=== PATIENT | male | born 1950 | race Caucasian/White ===

== ENCOUNTER 2020-04-23 06:03 | Inpatient (IN) ==
[2020-04-16 13:36] LABS: Basophils # (Auto) 0.03 K/mcL (0.00-0.30); Basophils % (Auto) 0.6 % (0.0-2.0); Eosinophils # (Auto) 0.14 K/mcL (0.00-0.70); Granulocytes % (Auto) 60.4 % (38.0-78.0); Hematocrit 38.8 % (40.1-51.0); Hemoglobin 12.9 g/dL (13.7-17.5); Lymphocytes # (Auto) 1.21 K/mcL (1.50-4.80); Lymphocytes % (Auto) 26.1 % (15.5-49.0); Mean Cell Volume 92.4 fL (80.0-100.0); Mean Corpuscular HGB Conc 33.2 g/dL (31.0-36.0); Mean Platelet Volume 9.7 fL (7.4-10.4); Monocytes # (Auto) 0.46 K/mcL (0.10-0.90); Monocytes % (Auto) 9.9 % (1.0-12.0); Platelet Count 211 K/mcL (140-440); Red Cell Distribution Width 12.1 % (11.5-14.5); WBC 4.6 K/mcL (4.50-11.00)
[2020-04-16 13:40] LABS: Appearance,Urine CLEAR; Bilirubin,Urine NEG (NEG); Color,Urine YELLOW; Culture Indicated,Urine NO; Glucose,Urine (UA) 150 mg/dL (NEG); Ketones,Urine NEG (NEG); Leukocyte Esterase,Urine NEG /uL (NEG); Nitrate,Urine NEG (NEG); Protein,Urine NEG (NEG); Specific Gravity,Urine 1.016 (1.000-1.035); Urine Blood NEG mg/dL (<0.03)
[2020-04-16 13:54] LABS: INR 0.9 (0.9-1.1); Prothrombin Time 12.5 sec (11.9-14.5)
[2020-04-16 13:59] LABS: Blood Urea Nitrogen 12 mg/dl (8-23); Calcium 8.8 mg/dl (8.6-10.4); Carbon Dioxide 25 mmol/L (22-30); Chloride 104 mmol/L (96-108); Glomerular Filtration Rate 86; Glucose 102 mg/dL (70-105)
[2020-04-16 14:04] LABS: Estimated Average Glucose(eAG) 137 mg/dL; Hemoglobin A1C 6.4 % HGB (4.0-6.0)
[~2020-04-23 06:03] MED LIST: 0.9 % SODIUM CHLORIDE 9 ML, KETOROLAC 30 MG, ROPIVACAINE HCL/PF 49.5 ML, EPINEPHrine 0.... IJ SCH; ACETAMINOPHEN 500 MG TABLET PO SCH; CELECOXIB 200 MG CAPSULE PO SCH; IPRATROPIUM/ALBUTEROL 3 ML AMPUL.NEB NEB PRN; PREGABALIN 75 MG CAPSULE PO SCH; SCOPOLAMINE 1 PATCH PATCH TOPICAL PRN; ceFAZolin 2 GM in DEXTROSE 5% IN WATER 50 ML IV SCH; oxyCODONE 10 MG TAB.ER.12H PO SCH
[2020-04-23] MEDS ORDERED: MIDAZOLAM 2 MG/2 ML VIAL IV ONE (08:58)
[2020-04-23] MEDS ORDERED: LIDOCAINE HCL/PF 100 MG/5 ML SYRINGE IV ONE (08:58)
[2020-04-23] MEDS ORDERED: DEXAMETHASONE 10 MG/ML VIAL IV ONE (08:58)
[2020-04-23] MEDS ORDERED: SUGAMMADEX SODIUM 200 MG/2 ML VIAL IV ONE (08:58)
[2020-04-23] MEDS ORDERED: KETAMINE 100 MG/ML ML IV ONE (08:58)
[2020-04-23] MEDS ORDERED: PROPOFOL 200 MG/20 ML VIAL IV ONE (08:58)
[2020-04-23] MEDS ORDERED: HYDROmorphone 1 MG/ML SYRINGE IV ONE (08:58)
[2020-04-23] MEDS ORDERED: ONDANSETRON 4 MG/2 ML VIAL IV ONE (08:58)
[2020-04-23] MEDS ORDERED: GLYCOPYRROLATE 0.2 MG/ML VIAL IV ONE (08:58)
[2020-04-23] MEDS ORDERED: ROPIVACAINE HCL/PF 30 ML VIAL IJ ONE (08:58)
[2020-04-23] MEDS ORDERED: ROCURONIUM 10 MG/ML ML IV ONE (08:58)
[2020-04-23] MEDS ORDERED: GENTAMICIN SULFATE 800 MG/20 ML VIAL IR ONE (09:32)
[2020-04-23] MEDS ORDERED: ONDANSETRON 4 MG/2 ML VIAL IV PRN ×2 (10:04→10:12)
[2020-04-23] MEDS ORDERED: fentaNYL 100 MCG/2 ML VIAL IV PRN (10:04)
[2020-04-23] MEDS ORDERED: HYDROmorphone 0.5 MG/0.5 ML SYRINGE IV PRN (10:04)
[2020-04-23] MEDS ORDERED: hydrALAZINE 20 MG/ML VIAL IV PRN (10:04)
[2020-04-23] MEDS ORDERED: IPRATROPIUM/ALBUTEROL 3 ML AMPUL.NEB NEB PRN (10:04)
[2020-04-23] MEDS ORDERED: BENZOCAINE/MENTHOL 1 LOZENGE PO PRN ×2 (10:04→10:12)
[2020-04-23] MEDS ORDERED: MEPERIDINE 25 MG/ML SYRINGE IV PRN (10:04)
[2020-04-23] MEDS ORDERED: KETOROLAC 15 MG/ML VIAL IV PRN (10:12)
[2020-04-23] MEDS ORDERED: TRANEXAMIC ACID 1,000 MG/10 ML VIAL IV SCH (10:12)
[2020-04-23] MEDS ORDERED: FLEETS ADULT ENEMA PR PRN (10:12)
[2020-04-23] MEDS ORDERED: HYDROcodone/APAP 10/325MG TABLET PO PRN (10:12)
[2020-04-23] MEDS ORDERED: MAGNESIUM HYDROXIDE 30 ML ORAL.SUSP PO PRN (10:12)
[2020-04-23] MEDS ORDERED: BISACODYL 10 MG SUPP.RECT PR PRN (10:12)
[2020-04-23] MEDS ORDERED: HYDROmorphone 1 MG/ML SYRINGE IV PRN (10:12)
[2020-04-23] MEDS ORDERED: POLYETHYLENE GLYCOL 3350 17 GM PACKET PO PRN (10:12)
[2020-04-23] MEDS ORDERED: ACETAMINOPHEN 325 MG TABLET PO PRN (10:12)
--- NOTE | 2020-04-23 10:12 | Brief Operative Note ---
Brief Operative Note Date of procedure: 04/23/20 Pre-op diagnosis: Right shoulder djd Post-op diagnosis: same Procedure: Right shoulder reverse tsa and bicep tenodesis Grafts/Implants: Yes Anesthesia: GETA Complications: none Surgeon: Apolinar Reyes Client Consultant: Garrett Reed Estimated blood loss (cc): 100 Tourniquet Time (Minutes): 0 Specimens Removed/Pathology: none sent Condition: stable Disposition: PACU
[2020-04-23] MEDS ORDERED: LACTATED RINGERS 1,000 ML IV SCH (10:15)
--- NOTE | 2020-04-23 10:27 | Discharge Plan ---
Discharge Instructions - TSA Patient Instructions Total Shoulder Protocol: Leave immobilizer in place except for bathing and ROM. Abduction pillow. Continue to wear sling until seen by physician. [place] Pendulum : These exercises use momentum produced by your body to move your shoulder joint. Bend your knees and shift your weight to your front leg, then back, allowing your arm to swing in the same directions. Using the same technique, alternately shift your weight between your right and left legs, allowing your arm to swing from side to side. These exercises are also performed in counterclockwise and clockwise circular motions. Typically these exercises are performed several times per day, for a set number repetitions or minutes, such as 20 times in a row or 5 minutes at a time. Discharge Plan Patient/Caregiver Discharge Instructions Activity: as per physical therapy Diet: Regular Diet Prescriptions: New hydrocodone-acetaminophen 10-325 mg Tablet 1 - 2 tab PO Q4HP PRN (Reason: Pain Level 3-6) Qty: 75 RF: 0 docusate sodium 100 mg Capsule 100 mg PO BID Qty: 60 RF: 0 Continued verapamil 120 mg Tablet Extended Release 120 mg PO QDAY RF: 0 multivitamin Tablet 1 tab PO Q2D RF: 0 metformin 850 mg Tablet 850 mg PO BIDCC RF: 0 clopidogrel [Plavix] 75 mg Tablet 75 mg PO QDAY RF: 0 vitamin B complex Tablet 1 tab PO Q2D RF: 0 lisinopril 5 mg Tablet 5 mg PO QHS RF: 0 rosuvastatin [Crestor] 20 mg Tablet 20 mg PO HS RF: 0 Other Ambulatory Orders: Brace/Splint (ONCE) Location: None Selected Ordered By: Garrett Reed Physical Therapy [place] - [facility] (Routine) Location: None Selected Ordered By: Garrett Reed Follow Up Plan Follow up with: Garrett Reed PA-C [Physician Configuration Release Manager] - Patient Disposition: Home, Self-Care Prognosis: Good Rehab Potential: Good I certify that the patient requires SNF services: No Overall status at discharge: patient is progressing back to baseline Discharge Orders: Discharge Order (Routine); Ordered 04/24/20 Ordered By: Garrett Reed
--- NOTE | 2020-04-23 11:30 | XRay Report ---
INDICATION: Post-OP Total Shoulder TECHNIQUE: AP and Y views of the right shoulder COMPARISON: None. FINDINGS: Status post right reverse shoulder arthroplasty. Alignment is anatomic. Previous resection of the distal right clavicle consistent with Dg procedure IMPRESSION: Reverse shoulder arthroplasty Interpreted and Authenticated by: Ozzy Olivares 04/23/20
[2020-04-23] MEDS: LACTATED RINGERS 1,000 ML IV SCH ×3 (11:33→20:18)
[2020-04-23] MEDS: 0.9 % SODIUM CHLORIDE 10 ML SYRINGE IV SCH ×2 (14:59→20:58)
--- NOTE | 2020-04-23 15:07 | Operative Note ---
DATE OF OPERATION: 04/23/2020 PREOPERATIVE DIAGNOSES: Right shoulder with rotator cuff arthropathy and biceps tendinopathy. 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 PROCEDURE: Right reverse total shoulder with [place] components with a biceps tenodesis. SURGEON: Apolinar Reyes M.D. CHIEF METER READER: Garrett Reed PA-C. The PA's assistance was required for the safe and efficient completion of the entire case. This provider's expertise and technical skill were required throughout the case. The PA assisted with preoperative coordination, intraoperative retraction, wound closure, dressing and splint application, as well as postoperative documentation and care coordination. ANESTHESIA: General LMA anesthesia. COMPLICATIONS: None. DESCRIPTION OF PROCEDURE: The patient was brought to the operating room and put to sleep with general LMA anesthesia. Once asleep, the patient had the right shoulder sterilely prepped and draped in the usual sterile fashion. A timeout was performed confirming this as the operative site by initials, consent form, and x-rays. We then made a deltopectoral approach after Ioban had been placed over the skin, retracting the deltoid laterally and identifying the subscap anteriorly which was released. The conjoined tendon retracted medially. We made our humeral neck cut at 135 degrees of inclination with 20 degrees of retroversion. We irrigated thoroughly and after the bony fragment been removed, we placed a protective plate on the humerus. This was subluxed posteriorly and inferiorly. I released the capsule 360 degrees around the glenoid. We removed the remnants of the labrum and biceps tendon. We placed a guide pin centrally and slightly posterior inferiorly. This was reamed up to a size 40 reamer. I then removed any osteophytes inferiorly. The metaglene was placed with a central screw measuring 44 mm. The peripheral screws were measured at 32, 36 and 32. We placed a 40 mm glenosphere with 2 mm of offset, 2 mm of eccentricity. Once this was tapped into place and locked, we irrigated thoroughly and prepared the humerus. This was broached up to a size 14. A 14 stem was used with a small amount of cement distally with a 6 mm poly liner. This gave perfect stability with tension with 2 mm of play when a shuck test was performed. We irrigated thoroughly. We then repaired the tissue and the capsule with #1 Ethibond. We repaired the biceps tendon to the pectoralis major and subpectoralis repair. This was repaired with two [id number] stitches. We irrigated thoroughly and then repaired the interval with 2-0 Vicryl and 3-0 Monocryl. Sterile bandage applied. A DonJoy sling was fitted and given to the patient. RBH:ana Job ID: [id number] Doc ID: [id number] Apolinar Reyes MD
[2020-04-23] MEDS: ceFAZolin 1 GM VIAL IV SCH (16:20)
[2020-04-23] MEDS: metFORMIN 850 MG TABLET PO SCH (20:17)
[2020-04-23] MEDS: DOCUSATE SODIUM 100 MG CAPSULE PO SCH (20:18)
[2020-04-23] MEDS ORDERED: TEMAZEPAM 15 MG CAPSULE PO PRN (21:00)
[2020-04-23] MEDS ORDERED: SENNOSIDES 1 TABLET PO SCH (21:00)
[2020-04-24] MEDS ORDERED: ceFAZolin 1 GM VIAL ONE (00:18)
[2020-04-24] MEDS: ceFAZolin 1 GM VIAL IV SCH (00:25)
[2020-04-24] MEDS: 0.9 % SODIUM CHLORIDE 10 ML SYRINGE IV SCH ×2 (03:40→04:08)
[2020-04-24] MEDS: LACTATED RINGERS 1,000 ML IV SCH (04:24)
--- NOTE | 2020-04-24 07:40 | Orthopedic Progress Note ---
SUBJECTIVE Subjective Patient information: Note initiated : 04/24/20 at 7:39 am Service Date, if different from initiated Date: [] Patient: Lidia Covington 70 y/o M admitted on 04/23/20 for Right Reverse Total Shoulder Arthroplasty with . Chief Complaint: [Pt is stable this morning on post operative day 1 without any significant concerns or complaints. Patients vital signs have remained stable. Patients dressing is dry and is grossly intact from a neurovascular and motor standpoint. Patients 10 point ROS is otherwise negative. ] Constitutional Vitals: Vital Signs Temp Pulse Resp BP Pulse Ox 98.0 F 68 16 105/67 92 04/24/20 03:37 04/24/20 03:37 04/24/20 03:37 04/24/20 03:37 04/24/20 03:37 Period Temp Pulse Resp BP Sys/Stauffer Pulse Ox Last 24 Hr 96.5 F-98.9 F 49-98 13-18 96-128/52-78 2-100 Intake and Output 04/23/20 04/24/20 04/24/20 21:59 05:59 13:59 Intake Total 540 150 Output Total 150 Balance 390 150 Weight 218 lb 3 oz Intake & Output: Intake & Output 04/23/20 04/24/20 04/24/20 21:59 05:59 13:59 Intake Total 540 150 Output Total 150 Balance 390 150 Weight 218 lb 3 oz Intake: Oral 540 150 Output: Void Amount 150 Other: Meal Dinner Percent of Meal Consumed 100% Urine Appearance Clear Clear Urine Color Dark Yellow Dark Yellow Urine Odor Normal # Voids 1 1 Extremities Exam Extremities exam: Present normal capillary refill, normal inspection and sena rovascular intact OBJ DATA Labs CBC & Chem 7: 04/16/20 11:14 04/16/20 11:14 Meds: Medications Acetaminophen (Tylenol) 650 mg PO Q6HP PRN PRN Reason: PAIN/FEVER > 101 Hydrocodone Bitart/Acetaminophen ([place] 10/325mg) 0 tab PO Q4HP PRN PRN Reason: PAIN LEVEL 3-6 Last Admin: 04/23/20 22:09 Dose: 1 tab Documented by: Bisacodyl (Dulcolax) 10 mg [place] Q2-3DAYS PRN PRN Reason: Constipation Docusate Sodium (Colace) 100 mg PO BID RM Last Admin: 04/23/20 20:18 Dose: 100 mg Documented by: Hydralazine HCl (Apresoline) 10 mg IV Q4-6HP PRN PRN Reason: Hypertension Hydromorphone HCl (Dilaudid) 0 mg IV Q2HP PRN; Protocol PRN Reason: Per Pain Protocol Lactated Ringer's (Lactated Ringers) 1,000 mls @ 100 mls/hr IV .Q10H [facility] Last Admin: 04/24/20 04:24 Dose: Not Given Documented by: Ketorolac Tromethamine (Toradol) 15 mg IV Q6HP PRN PRN Reason: Pain Stop: 04/25/20 10:13 Magnesium Hydroxide (Milk Of Magnesia) 30 ml PO BIDP PRN PRN Reason: Constipation Metformin HCl (Glucophage) 850 mg PO BIDCC [facility] Last Admin: 04/23/20 20:17 Dose: 850 mg Documented by: Ondansetron HCl (Zofran) 4 mg IV Q4HP PRN PRN Reason: Nausea And Vomiting Polyethylene Glycol (Miralax) 17 gm PO DAILYP PRN PRN Reason: Constipation Senna (Senokot) 2 tab PO HS [facility] Last Admin: 04/23/20 20:18 Dose: Not Given Documented by: Sodium Biphosphate/Sodium Phosphate (Fleets Adult) 1 dose [place] Q3-4DAYS PRN PRN Reason: Constipation Sodium Chloride (Saline Flush) 10 ml IV Q8 [facility] Last Admin: 04/24/20 04:08 Dose: Not Given Documented by: Temazepam (Restoril) 15 mg PO HSP PRN PRN Reason: Insomnia Throat Lozenges (Cepacol) 1 lozenge PO PRN PRN PRN Reason: Sore Throat A/P Narrative A/P Narrative: The patient has been educated regarding dressing care, Physical Therapy recommendations, home exercises, restrictions, and follow up appo intments. The patient has had all necessary DME prescribed. The patient has remained relatively stable during their hospital course. Time Spent With Patient Time: Total time spent is greater than 50% in coordination of care (as documented) at patient's floor/unit and/or counseling patient:
[2020-04-24] MEDS: metFORMIN 850 MG TABLET PO SCH (08:14)
[2020-04-24] MEDS: DOCUSATE SODIUM 100 MG CAPSULE PO SCH (08:14)
== END 2020-04-24 12:00 | disposition home or self-care (01) | DRG 483 ==
LOC: MEDSUR 06:03
PROVIDERS: ADMIT Orthopaedic Surgery; ATTEND Orthopaedic Surgery